=== PATIENT | male | born 1975 ===

== ENCOUNTER 2021-08-29 20:12 | Emergency (ER) | payer SELFPAY ==
[~2021-08-29] VITALS: Ht 182.9 cm; Wt 127.0 kg
[2021-08-29] MEDS ORDERED: CEPH500 PO (21:12)
== END 2021-08-29 21:23 | disposition home or self-care (01) ==
LOC: ER 20:12 → EDBD 20:12 → ER 21:23
DX: L02.411 Cutaneous abscess of right axilla (principal)
CPT/HCPCS: 99282; A9270